=== PATIENT | female | born 1980 | race Caucasian/White ===

== ENCOUNTER 2016-06-10 08:29 | Emergency (ER) | payer OTHER ==
--- NOTE | 2016-06-10 08:58 | EDM.PDOC ---
ED HPI ENT - General Chief Complaint: ENT Problem Stated Complaint: LT EAR HURTS Time Seen by Provider: 06/10/16 08:32 - History of Present Illness INITIAL COMMENTS - FREE TEXT/NARRATIVE: History of present illness: [] Review of systems: As per history of present illness and below otherwise all systems reviewed and negative. Past medical history: As per history of present illness and as reviewed below otherwise noncontributory. Surgical history: As per history of present illness and as reviewed below otherwise noncontributory. Social history: No reported history of drug or alcohol abuse. Family history: As per history of present illness and as reviewed below otherwise noncontributory. Physical exam: General: Well developed, well nourished in NAD HEENT: Atraumatic, normocephalic, pupils reactive, negative for conjunctival pallor or scleral icterus, mucous membranes moist, throat clear, neck supple, nontender, trachea midline. Lungs: Clear to auscultation, breath sounds equal bilaterally, chest nontender. Heart: S1S2, regular, negative for clicks, rubs, or JVD. Abdomen: Soft, nondistended, nontender. Negative for masses or hepatosplenomegaly. Negative for costovertebral tenderness. Pelvis: Stable nontender. Genitourinary: Deferred. Rectal: Deferred. Extremities: Atraumatic, negative for cords or calf pain. Neurovascular unremarkable. Neuro: Awake, alert, oriented. Cranial nerves II through XII unremarkable. Cerebellum unremarkable. Motor and sensory unremarkable throughout. Exam nonfocal. Diagnostics: [] Therapeutics: [] Impression: [] Plan: [] Definitive disposition and diagnosis as appropriate pending reevaluation and review of above. - Related Data Allergies/ADRs: Allergies Allergy/AdvReac Type Severity Reaction Status Date / Time No Known Allergies Allergy Verified 06/10/16 08:47 Home Meds: Home Meds . 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: - Infectious Disease History Infectious Disease History: Reports: Chicken pox - Past Surgical History Female Surgical History: Reports: section, Hysterectomy Social & Family History - Family History Family Medical History: Noncontributory - Tobacco Use Smoking Status *Q: Never Smoker - Caffeine Use Caffeine Use: Reports: None - Recreational Drug Use Recreational Drug Use: No Course - Vital Signs Last Recorded V/S: Last Vital Signs Temp 97.8 F 06/10/16 08:45 Pulse 74 06/10/16 08:45 Resp 16 06/10/16 08:45 BP 127/80 06/10/16 08:45 Pulse Ox 98 06/10/16 08:45 Departure - Departure Forms: ED Department Discharge
--- NOTE | 2016-06-10 09:18 | EDM.PDOC ---
<Michelle Sanchez - Last Filed: 06/10/16 09:11> ED HPI ENT - General Chief Complaint: ENT Problem Stated Complaint: LT EAR HURTS Time Seen by Provider: 06/10/16 08:32 - History of Present Illness INITIAL COMMENTS - FREE TEXT/NARRATIVE: History of present illness: [35-year-old female otherwise healthy presents with left ear pain started on Wednesday which is worsening. She has mild uri with rhinorhhea, sore throat, dry cough. She denies sob, n/v/d, abdominal pain or other symptoms ] Review of systems: As per history of present illness and below otherwise all systems reviewed and negative. Past medical history: As per history of present illness and as reviewed below otherwise noncontributory. Surgical history: As per history of present illness and as reviewed below otherwise noncontributory. Social history: No reported history of drug or alcohol abuse. Family history: As per history of present illness and as reviewed below otherwise noncontributory. Physical exam: General: Well developed, well nourished in NAD HEENT: Atraumatic, normocephalic, pupils reactive, negative for conjunctival pallor or scleral icterus, mucous membranes moist, throat clear, neck supple, nontender, trachea midline. Left TM: erythema without effusion. Lungs: Clear to auscultation, breath sounds equal bilaterally, chest nontender. Heart: S1S2, regular, negative for clicks, rubs, or JVD. Abdomen: Soft, nondistended, nontender. Negative for masses or hepatosplenomegaly. Negative for costovertebral tenderness. Pelvis: Stable nontender. Genitourinary: Deferred. Rectal: Deferred. Extremities: Atraumatic, negative for cords or calf pain. Neurovascular unremarkable. Neuro: Awake, alert, oriented. Cranial nerves II through XII unremarkable. Cerebellum unremarkable. Motor and sensory unremarkable throughout. Exam nonfocal. Diagnostics: [] Therapeutics: [] Impression: [otitis media] Plan: [amox 500 tid x 7 days ibuprofen 800 mg po TID x 5 ] Definitive disposition and diagnosis as appropriate pending reevaluation and review of above. 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: - Infectious Disease History Infectious Disease History: Reports: Chicken pox - Past Surgical History Female Surgical History: Reports: section, Hysterectomy Social & Family History - Family History Family Medical History: Noncontributory - Tobacco Use Smoking Status *Q: Never Smoker - Caffeine Use Caffeine Use: Reports: None - Recreational Drug Use Recreational Drug Use: No ED ROS ENT - Review of Systems Review Of Systems: See Below (History of present illness) ED EXAM, ENT - Physical Exam Exam: See Below (History of present illness) Course - Vital Signs Last Recorded V/S: Last Vital Signs Temp 36.6 C 06/10/16 09:28 Pulse 70 06/10/16 09:28 Resp 16 06/10/16 09:28 BP 111/73 06/10/16 09:28 Pulse Ox 98 06/10/16 09:28 Departure - Departure Time of Disposition: 09:16 Disposition: Home, Self-Care 01 Condition: good Clinical Impression: Otitis media Prescriptions: Amoxicillin 500 mg PO TID #21 tab Instructions: Otitis Media, Adult, [id number] Referrals: PCP,None [Primary Care Provider] - Forms: ED Department Discharge Additional Instructions: The following information is given to patients seen in the emergency department who are being discharged to home. This information is to outline your options for follow-up care. We provide all patients seen in our emergency department with a follow-up referral. The need for follow-up, as well as the timing and circumstances, are variable depending upon the specifics of your emergency department visit. If you don't have a primary care physician on staff, we will provide you with a referral. We always advise you to contact your personal physician following an emergency department visit to inform them of the circumstance of the visit and for follow-up with them and/or the need for any referrals to a consulting specialist. The emergency department will also refer you to a specialist when appropriate. This referral assures that you have the opportunity for follow-up care with a specialist. All of these measure are taken in an effort to provide you with optimal care, which includes your follow-up. Under all circumstances we always encourage you to contact your private physician who remains a resource for coordinating your care. When calling for follow-up care, please make the office aware that this follow-up is from your recent emergency room visit. If for any reason you are refused follow-up, please contact the [facility] Emergency Department at and asked to speak to the emergency department charge nurse. <Gavin Sears - Last Filed: 06/10/16 10:09> ED HPI ENT - History of Present Illness INITIAL COMMENTS - FREE TEXT/NARRATIVE: 35-year-old female no prior chronic ear problems now complaining of left earache for several days. Pain is worsening. She has had some cold symptoms recently. No trauma to the ear or barotrauma. No fevers chills sweats or shaking chills. No headache or dizziness denies other complaints and denies possibility of On exam patient is well-appearing well-groomed alert no acute distress communicative and appropriate. Left TM with erythema bulging loss of landmarks. No perforation and normal EAC. Remainder of exam is benign MDM: Signs and symptoms consistent with uncomplicated left otitis media in this well-appearing patient is afebrile stable with supple neck. Discussed with patient possibility of viral etiology along however we'll cover for bacterial infection with amoxicillin 3 times a day for 7 days. Patient aware to use Motrin and Tylenol as needed for pain and followup with PCP for reevaluation and referral to ENT if her symptoms persist or worsen with failed outpatient therapy. He agrees with outpatient followup and strict return precautions were given Gavin Sears M.D.
== END 2016-06-10 09:28 | disposition home or self-care (01) ==
LOC: MW.ED 08:29
CPT/HCPCS: 99282; 99283